=== PATIENT | male | born 1935 | race Two or more races ===

== ENCOUNTER 2021-08-17 12:54 | Emergency (ER) | payer OTHER ==
[~2021-08-17] VITALS: Ht 175.3 cm; Wt 74.8 kg
[2021-08-17 13:01] VITALS: BP 155/88
[2021-08-17] MEDS ORDERED: MECLIZINE HCL 25 MG TAB PO ONE (13:15)
[2021-08-17 14:01] LABS: Basophils # (auto) 0.1 10 ^3/uL (0-0.2); Basophils % (auto) 0.8 % (0.0-2.0); Eosinophils # (auto) 0.4 10 ^3/uL (0-0.8); Eosinophils % (auto) 4.1 % (0.0-7.0); Hematocrit 50.3 % (41.0-53.0); Hemoglobin 16.8 g/dL (13.5-17.5); Lymphocytes # (auto) 2.3 10 ^3/uL (0.4-5.4); Lymphocytes % (auto) 27.1 % (10.0-50.0); Mean Corpuscular Hemoglobin 32.3 pg (28.0-32.0); Mean Corpuscular Hgb Conc. 33.4 g/dL (32.0-36.0); Mean Corpuscular Volume 96.7 fL (80.0-100.0); Monocytes # (auto) 0.7 10 ^3/uL (0-1.3); Monocytes % (auto) 8.6 % (0.0-12.0); Neutrophils # (auto) 5.1 10 ^3/uL (1.6-8.6); Neutrophils % (auto) 59.4 % (37.0-80.0); Nucleated Red Blood Cells % 0.1 %; Red Cell Distribution Width 13.8 % (11.8-14.3); White Blood Cell 8.5 10^3/uL (4.4-10.8)
[2021-08-17 14:15] LABS: Albumin 3.9 g/dL (3.4-5.0); Calcium 10.7 mg/dL (8.5-10.1); Potassium 4.1 mmol/L (3.5-5.1)
[2021-08-17 14:18] LABS: Bilirubin, Total 0.6 mg/dL (0.2-1.0); Total Protein 7.5 g/dL (6.4-8.2)
== END 2021-08-17 14:58 | disposition home or self-care (01) ==
LOC: ER 12:54
DX: R42 Dizziness and giddiness (principal); I10 Essential (primary) hypertension
CPT/HCPCS: 36415; 70450; 80053; 85025; 93005; 99285; J8597